=== PATIENT | male | born 1945 | race Caucasian/White ===

== ENCOUNTER 2023-08-14 13:42 | Emergency (ER) | payer MEDICARE, SELFPAY ==
[2023-08-14 13:48] VITALS: BP 120/74; PULSE 55; TEMP 36.5; O2SAT 97; BMI 29.1
--- NOTE | 2023-08-14 14:12 | ECG_ITS ---
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
--- NOTE | 2023-08-14 14:13 | ED.GENADUL1 ---
HPI HPI - General Adult General Chief complaint: Altered Mental Status Stated complaint: GENERAL WEAKNESS Time Seen by Provider: 08/14/23 13:59 Source: patient Mode of arrival: ambulance Limitations: no limitations History of Present Illness HPI narrative: Patient is a 77-year-old male who was brought to the [place] from [facility] after a lengthy stay secondary to a subdural hematoma with craniotomy. He was brought to this emergency department today by EMS for an alleged unresponsive episode after he was done eating lunch. Patient states this is not true. senior care reports that the patient was unresponsive and they were concerned he was having a seizure so they called 911. Patient states he did not sleep well last night and believes that he dozed off and woke up to nurses and EMS telling him he had to come to the hospital. He is alert and oriented to person, place, time. He has no focal medical complaints in the ER and wishes to be discharged. He would like to leave AGAINST MEDICAL ADVICE and does not want any testing done. Related Data Home Medications ?Medication ?Instructions ?Recorded ?Confirmed acetaminophen 325 mg tablet 325 mg PO Q6H PRN pain 08/14/23 08/14/23 albuterol sulfate 2.5 mg/3 mL 1.25 mg inhalation Q4H 08/14/23 08/14/23 (0.083 %) solution for nebulization amlodipine 10 mg tablet 10 mg PO DAILY 08/14/23 08/14/23 gabapentin 300 mg capsule 300 mg PO DAILY 08/14/23 08/14/23 Allergies Allergy/AdvReac Type Severity Reaction Status Date / Time meloxicam Allergy Unknown Verified 08/14/23 13:53 pravastatin Allergy Unknown Verified 08/14/23 13:53 Opioid HPI Opioid Management Most Recent Opioid Data: No Data to Display Review of Systems ROS Constitutional Denies: fever or chills Ears, nose, mouth, and throat Denies: throat pain or nasal congestion Respiratory Denies: shortness of breath Gastrointestinal Denies: nausea or vomiting Neurological Denies: headache Hematologic/Lymphatic Denies: easy bruising or easy bleeding Exam Narrative Exam Narrative: Gen.: Awake, alert, in no distress Head: Normocephalic, Large stapled incision to the right temporal scalp with smaller sutured incision. No swelling, bleeding or drainage ENT: Moist mucous membranes Respiratory: No respiratory distress, lungs clear bilaterally Cardio: Regular rate and rhythm Extremities: Moves extremities equally Psych: Normal mood and affect Neuro: No focal neuro deficit; Alert and oriented to person, place, time. No slurred speech or focal neurodeficits noted Skin: Warm, dry, intact Constitutional Vital Signs, click to edit/add: Last Vital Signs Temp 97.7 F 08/14/23 13:48 Pulse 55 L 08/14/23 13:48 Resp 16 08/14/23 13:48 BP 120/74 08/14/23 13:48 Pulse Ox 97 08/14/23 13:48 O2 Del Method Room Air 08/14/23 13:48 Course Vital Signs Vital signs: Vital Signs Temperature 97.7 F 08/14/23 13:48 Pulse Rate 55 L 08/14/23 13:48 Respiratory Rate 16 08/14/23 13:48 Blood Pressure 120/74 08/14/23 13:48 Pulse Oximetry 97 08/14/23 13:48 Oxygen Delivery Method Room Air 08/14/23 13:48 Temperature 97.7 F 08/14/23 13:48 Pulse Rate 55 L 08/14/23 13:48 Respiratory Rate 16 08/14/23 13:48 Blood Pressure 120/74 08/14/23 13:48 Pulse Oximetry 97 08/14/23 13:48 Oxygen Delivery Method Room Air 08/14/23 13:48 Medical Decision Making MDM Narrative Medical decision making narrative: I explained to the patient the concerns from his residence and recommended that he have an evaluation with head CT, chest x-ray, labs and urine. Patient does not want any of this evaluation. He states he just had a CT last week, he has no focal medical complaints and does not agree with nursing statement that he was unresponsive. He understands the risks of and disability by leaving AGAINST MEDICAL ADVICE. Patient was made aware that we cannot force any testing on him, but to rule out any significant illness he should be evaluated. He understands this but would like to sign out AGAINST MEDICAL ADVICE. He understands he can return to the ER at any time SUPERVISED APC VISIT, PHYSICIAN ATTESTATION: Based on the medical record the care appears appropriate. ? Medical Records Medical records reviewed: Yes I reviewed the patient's medical records ECG Data Attestation: I personally reviewed and interpreted this ECG as follows: (Normal sinus rhythm at a rate of 56 with sinus arrhythmia, no acute ST elevation or ectopy. EKG reviewed by attending physician) Discharge Plan Discharge Stand Alone Forms: Portal Instructions Chief Complaint: Altered Mental Status Clinical Impression: Adult general medical exam Patient Disposition: Left Against Medical Advice Time of Disposition Decision: 14:10 Condition: Good Prescriptions / Home Meds: No Action acetaminophen 325 mg tablet 325 mg PO Q6H PRN (Reason: pain) albuterol sulfate 2.5 mg /3 mL (0.083 %) solution for nebulization 1.25 mg inhalation Q4H amlodipine 10 mg tablet 10 mg PO DAILY gabapentin 300 mg capsule 300 mg PO DAILY Print Language: Hungarian Additional Instructions: If you develop any symptoms or would like to be reevaluated please come back to the emergency department for further evaluation and treatment
--- NOTE | 2023-08-14 14:50 | PC.NURSE ---
staff from [facility] states pt went unresponsive. pt alert and oriented upon arrival to ER. pt states feels fine.
== END 2023-08-14 14:35 | disposition left against medical advice (07) ==
PROVIDERS: Emergency Provider Emergency Medicine Emergency Medical Services
DX: Z00.00 Encounter for general adult medical examination without abnormal findings (principal); Z53.29 Procedure and treatment not carried out because of patient's decision for other reasons
CPT/HCPCS: 93005; 99283

== ENCOUNTER 2023-08-18 19:30 | Observation (INO) | payer MEDICARE, OTHER, SELFPAY ==
[2023-08-18] VITALS (24 sets, daily range): BP systolic 107; BP diastolic 61; PULSE 50–89; TEMP 36.9; O2SAT 95–97; BMI 14.5
--- NOTE | 2023-08-18 19:32 | ED_ITS ---
HPI - Altered Mental Status General Chief Complaint: Altered Mental Status Stated Complaint: ALTERED MENTAL STATUS Time Seen by Provider: 08/18/23 19:32 History of Present Illness HPI narrative: This 77-year-old male who is status post brain surgery after having a subdural hematoma and [facility] was transferred for evaluation of altered mental status and pinpoint pupils. The patient states he is not confused, he knows where he is. There was some concern that the family may be bringing in pain medication for him from home. He denies that this is the case. He states they give him his medication at the retirement in the morning and at night. He states they got mad at him tonight because he wanted a cup of coffee and to go to the bathroom. He has no focal neurologic deficits. He had has not been febrile. He denies any chest pain or shortness of breath. He has lexi on the right side of his scalp where his surgery was performed. He was also seen in this emergency department recently for questionable seizure but refused a workup at that time and was sent back. He states today that this is the second time he has been brought here clearly indicating that he remembers being brought here recently for the questionable seizure. He keeps repeating himself and asking if he is in trouble. According to his MAR, he is on Methadone once daily, OARRS is however negative. The patient's daughter and christy? came to the emergency department shortly after his arrival and gave additional history. They state that his mental status today is not typical of his typical mental status. 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 They have not seen a physician since he has been at the [place]. His MAR states that he is getting 30 mg of methadone in the morning. I did review the MAR with his daughter and christy?. I also reviewed some of his labs including a urinary tract infection. Related Data Home Medications ?Medication ?Instructions ?Recorded ?Confirmed acetaminophen 325 mg tablet 325 mg PO Q6H PRN pain 08/14/23 08/14/23 albuterol sulfate 2.5 mg/3 mL 1.25 mg inhalation Q4H 08/14/23 08/14/23 (0.083 %) solution for nebulization amlodipine 10 mg tablet 10 mg PO DAILY 08/14/23 08/14/23 gabapentin 300 mg capsule 300 mg PO DAILY 08/14/23 08/14/23 Allergies Allergy/AdvReac Type Severity Reaction Status Date / Time meloxicam Allergy Unknown Verified 08/14/23 13:53 pravastatin Allergy Unknown Verified 08/14/23 13:53 Review of Systems ROS Status of ROS 10 or more systems reviewed and unremark able except as noted in history and below Exam Narrative Exam Narrative: Vital signs and Nursing Notes reviewed: He is afebrile with a normal pulse, normal blood pressure, he is not hypoxic with pulse ox of 97% on room air General: Awake, alert, oriented to person and place, remembers being in this emergency department recently. GCS 15, anxious, repeats the same question over and over, no respiratory distress, moves easily about the stretcher. HEENT: Normocephalic, healing laceration to the right parietal aspect of the scalp and an additional area with 1 suture in it on the vertex of the scalp adjacent to the healing laceration, no swelling, tenderness or sign of infection Neck: Supple, no meningeal signs, no anterior or posterior cervical lymphadenopathy Chest: Lungs are clear to auscultation with good air entry, there is no wheezing rhonchi or rales appreciated no accessory muscle use, patient is speaking in complete sentences-no chest wall tenderness to palpation CVS: Regular rate and rhythm S1-S2, no murmurs rubs or gallops, pulses are brisk and equal bilaterally ABD: Soft, nondistended, nontender, no rebound guarding or rigidity, bowel sounds are normal, no pulsatile masses appreciated Extremities: Moving all extremities, no lower extremity tenderness or swelling noted, negative Homans' sign, pulses are brisk and equal bilaterally Skin: Normal in appearance without rash,pallor, petechiae or purpura Neuro: No focal deficits, emergency communications dispatcher strength is intact, speech is clear, no facial droop, patient easily pulls himself to a sitting position from a lying position indicating he has no truncal weakness, memory is mostly intact but the patient does repeat questions over and over and is anxious Constitutional Vital Signs, click to edit/add: Last Vital Signs Temp 98.5 F 08/18/23 19:32 Pulse 50 L 08/18/23 23:40 Resp 11 L 08/18/23 23:40 BP 107/61 08/18/23 19:32 Pulse Ox 95 08/18/23 22:30 O2 Del Method Room Air 08/18/23 19:32 Course Vital Signs Vital signs: Vital Signs Temperature 98.5 F 08/18/23 19:32 Pulse Rate 67 08/18/23 19:32 Respiratory Rate 18 08/18/23 19:32 Blood Pressure 107/61 08/18/23 19:32 Pulse Oximetry 97 08/18/23 19:32 Oxygen Delivery Method Room Air 08/18/23 19:32 Temperature 98.5 F 08/18/23 19:32 Pulse Rate 50 L 08/18/23 23:40 Respiratory Rate 11 L 08/18/23 23:40 Blood Pressure 107/61 08/18/23 19:32 Pulse Oximetry 95 08/18/23 22:30 Oxygen Delivery Method Room Air 08/18/23 19:32 MDM - Altered Mental Status MDM Narrative Medical decision making narrative: This 77-year-old male who recently had a craniotomy due to a subdural hematoma that he sustained after falling out of a truck at home in July and has been at [facility] and then transferred to local [facility] care facility for rehab is transferred to the emergency department from the extended care facility for evaluation of altered mental status. 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 The patient's family is upset stating that they do not feel that he is being medicated appropriately as he was formally on 3 times daily dosing of pain medication. I did review the patient's MAR and he is getting this methadone. Upon arrival he was alert and oriented but had episodes of tearfulness and anxiety. There is no gross focal deficits. EKG done upon arrival was a sinus rhythm that was limited by artifact but does not show any acute findings. An IV was placed and routine labs were ordered and are reviewed. He has a normal white count. Hemoglobin is low but stable at 8.9. BUN and creatinine are mildly elevated. He has a normal troponin. Lactic acid was normal. CT scan of the brain which is included in the body of this report does not show any new or acute findings but does show chronic and stable issues. Chest x-ray was reviewed by radiology and does not show any acute pneumonia. He does have a urinary tract infection with greater than 100 white blood cells per high-power field. He was medicated with IV fluids and a dose of Ativan due to his anxiety and inability to stay still for t he CT scan. He was also given IV Rocephin for the UTI. He will be admitted to the hospitalist service for further evaluation and treatment. He remains hemodynamically stable in the emergency department. Medical Records Medical records narrative: The [address] [address] [address] Scan Report Signed Patient: ADELINA ELAM MR#: [id number] : 1945 Acct:[id number] Age/Sex: 77 / M ADM Date: 08/18/23 Loc: ER Attending Dr: Ordering Physician: Yenifer Mosher Date of Service: 08/18/23 Procedure(s): CT head/brain wo con Accession Number(s): [id number] cc: GERONIMO SAUCEDO D.O.~ The [address] [address] Patient Name: ADELINA ELAM MRN: [id number] date: 1945 Sex: M Assigned Patient Location: ER Current Patient Location: ER Accession/Order Number: [id number] Exam Date: 08/18/2023 21:00 Report Date: 08/18/2023 22:22 At the request of: YENIFER MOSHER Procedure: CT head/brain wo con INDICATION: 77 years old; Male. Change in mental status. Postop brain surgery. TECHNIQUE: CT Head (ax/cor/sag reformats). Ionizing radiation dose reduced via iterative reconstruction/FBP blend and body size kV/mA adjustment. Comparison: Head CT dated 08/02/2023. Head CT dated 07/19/2023. FINDINGS: POSTOPERATIVE CHANGES: Prior right-sided craniotomy. There is evacuation of a right-sided subdural hematoma. Residual primarily hypodense fluid remains measuring 9.73 mm in thickness, improved as compared to the prior study. A small amount of intracranial pneumocephalus is present. BRAIN PARENCHYMA: No acute intracranial hemorrhage is present. There is improvement in the appearance of mass effect as compared to the prior study. No midline shift is appreciated. Third ventricle is in the midline. Patchy and confluent low-density seen in the white matter without mass effect. Although nonspecific, this finding would be consistent with small vessel ischemic change. VENTRICLES/EXTRA-AXIAL SPACES: Enlarged, consistent with atrophy. There is persistent mass effect with compression of cortical sulci in the right associated with residual subdural fluid. However, there is no midline shift present. Compression of the frontal horn of the right lateral ventricle is seen which is improved as compared to the prior study. SINUSES/MASTOIDS: Small fluid level in the visualized portion maxillary sinus on the left. The maxillary sinuses are not completely included in the examination. Mastoid air cells are clear. MSK: Right-sided craniotomy. Extracranial soft tissue swelling with surgical clips. The anterior margin of the craniotomy includes the previous olivia hole. OTHER: No hyperdense intraluminal thrombus is present. Vascular calcifications are seen in the anterior and posterior circulation. CT/CT head/brain wo con IMPRESSION: 1. Postop right-sided craniotomy. Evacuation of right-sided subdural hematoma. There is residual hypodense fluid within the subdural space, decreased in volume as compared to the prior study. No new hyperdense component is present. A small amount of intracranial, postoperative pneumocephalus is noted. 2. Improvement in previously noted mass effect. 3. Nonspecific white matter changes. 4. Atrophy. 5. Vascular calcification in the anterior and posterior circulation. 6. Small fluid level visualized portion left maxillary sinus. Electronically authenticated by: JOANN JACOBS Date: 08/18/2023 22:22 The [place] [id number] XRay Report Signed Patient: CONSUELO ROBERTS MR#: [id number] : 03/29/1948 Acct:[id number] Age/Sex: 75 / F ADM Date: 08/18/23 Loc: ER Attending Dr: Ordering Physician: Yenifer Mosher Date of Service: 08/18/23 Procedure(s): XR chest 1V Accession Number(s): [id number] cc: Yenifer Mosher; MULU RESENDIZ M.D.~ The [place] [id number] Patient Name: CONSUELO ROBERTS MRN: [id number] date: 03/29/1948 Sex: F Assigned Patient Location: ER Current Patient Location: ED.MAIN Accession/Order Number: [id number] Exam Date: 08/18/2023 22:25 Report Date: 08/18/2023 23:59 At the request of: YENIFER MOSHER Procedure: XR chest 1V EXAM: XR chest 1V HISTORY: SOB COMPARISON: Chest x-ray, 07/24/2023. TECHNIQUE: AP upright portable chest. FINDINGS: The heart is mildly moderately enlarged. The mediastinal contour is normal. Mild interstitial prominence in the lower lungs could reflect very early edema. The lungs show mild hyperinflation but appear otherwise clear. No pleural effusion or pneumothorax is seen. XR/XR chest 1V IMPRESSION: Cardiomegaly and pulmonary hyperinflation, with nonspecific mild interstitial prominence in the lower lungs which could reflect early dependent edema. The lungs appear otherwise clear. Electronically authenticated by: ARPAN MANZO Date: 08/18/2023 23:59 Lab Data Labs: Lab Results 08/18/23 08/18/23 Range/Units 20:00 20:17 WBC 6.7 (4.0-11.0) 10^3/uL RBC 3.09 L (4.70-6.10) 10^6/uL Hgb 8.9 L (14.0-18.0) g/dL Hct 28.5 L (42.0-54.0) % MCV 92.2 (80.0-94.0) fL MCH 28.8 (25.9-34.0) pg MCHC 31.2 (29.9-35.2) g/dL RDW 15.2 H (11.0-15.0) % Plt Count 290 (150-450) 10^3/uL MPV 8.7 L (9.5-13.5) fL Neut % (Auto) 81.1 H (43.0-75.0) % Lymph % (Auto) 9.8 L (20.5-60.0) % [place] % (Auto) 7.0 (1.7-12.0) % Eos % (Auto) 0.7 L (0.9-7.0) % Baso % (Auto) 0.4 (0.2-2.0) % Neut # (Auto) 5.4 (1.4-6.5) 10^3/uL Lymph # (Auto) 0.7 L (1.2-3.8) 10^3/uL [place] # (Auto) 0.5 (0.3-0.8) 10^3/uL Eos # (Auto) 0.1 (0.0-0.7) 10^3/uL Baso # (Auto) 0.0 (0.0-0.1) 10^3/uL Abs Immat Gran (auto) 0.07 H (0.00-0.03) 10^3/uL Imm/Tot Granulo (auto) 1.0 H (0.0-0.5) % PT 10.3 (9.0-11.6) sec INR 0.97 Sodium 136 (136-145) mmol/L Potassium 5.2 H (3.5-5.1) mmol/L Chloride 103 (98-107) mmol/L Carbon Dioxide 22.7 (21.0-32.0) mmol/L Anion Gap 15.5 BUN 37.0 H (7.0-18.0) mg/dL Creatinine 1.36 H (0.70-1.30) mg/dL Est GFR ( Amer) >60 (>=60) Est GFR (Non-Af Amer) 51 L (>=60) BUN/Creatinine Ratio 27.2 Glucose 111 H (74-106) mg/dL Lactate 1.3 (0.4-2.0) mmol/L Calcium 9.5 (8.5-10.1) mg/dL Total Bilirubin 0.3 (0.2-1.0) mg/dL AST 16 (15-37) U/L ALT 33 (16-63) U/L Alkaline Phosphatase 95 (46-116) U/L Troponin I High Sens 4.3 (4.0-76.1) pg/mL Total Protein 7.6 (6.4-8.2) g/dL Albumin 3.6 (3.4-5.0) g/dL Globulin 4.0 g/dL Albumin/Globulin Ratio 0.9 Urine Color Red A (YELLOW) Urine Clarity Clear (CLEAR) Urine pH 5.5 (5.0-9.0) Ur Specific [place] 1.020 (1.005-1.025) Urine Protein Negative (NEG/TRACE) mg/dL Urine Glucose (UA) Negative (NEGATIVE) mg/dL Urine Ketones Negative (NEGATIVE) mg/dL Urine Occult Blood Trace-i (NEGATIVE) Urine Nitrite Negative (NEGATIVE) Urine Bilirubin Negative (NEGATIVE) Urine Urobilinogen 0.2 (0.2-1.0) EU/dL Ur Leukocyte Esterase Moderate A (NEGATIVE) Urine RBC 0-2 (0-2) #/HPF Urine WBC >100 A (NONE SEEN) #/HPF Ur Squamous Epith Cells Many A (NONE/RARE) #/LPF Urine Crystals None seen (None Seen) #/HPF Amorphous Sediment Many Urine Bacteria Small A (NONE SEEN) #/HPF Urine Casts None seen (NONE SEEN) #/LPF Urine Mucus Moderate A (NONE SEEN) Ur Culture Indicated? Yes Urine Opiates Screen Negative (NEGATIVE) Ur Buprenorphine Scrn Negative (NEGATIVE) Ur Oxycodone Screen Negative (NEGATIVE) Urine Methadone Screen Positive A (NEGATIVE) Ur Barbiturates Screen Negative (NEGATIVE) U Tricyclic Antidepress Negative (NEGATIVE) Ur Phencyclidine Scrn Negative (NEGATIVE) Ur Amphetamines Screen Negative (NEGATIVE) U Methamphetamines Scrn Negative (NEGATIVE) U Benzodiazepines Scrn Negative (NEGATIVE) Urine Cocaine Screen Negative (NEGATIVE) U Cannabinoids Screen Negative (NEGATIVE) ECG Data Attestation: I personally reviewed and interpreted this ECG as follows: (Interpretation is limited by patient movement, sinus rhythm at 75 bpm, no acute ST segment elevation or T wave inversion, normal axis) Discharge Plan Discharge Chief Complaint: Altered Mental Status Clinical Impression: Delirium due to general medical condition, Acute UTI Patient Disposition: Admitted as Observation Time of Disposition Decision: 00:28 Condition: Fair Prescriptions / Home Meds: No Action acetaminophen 325 mg tablet 325 mg PO Q6H PRN (Reason: pain) albuterol sulfate 2.5 mg /3 mL (0.083 %) solution for nebulization 1.25 mg inhalation Q4H amlodipine 10 mg tablet 10 mg PO DAILY gabapentin 300 mg capsule 300 mg PO DAILY Print Language: Monegasque Referrals: Physician,Non-Staff, [Physician] - 1 week
--- NOTE | 2023-08-18 19:45 | CT_ITS ---
The [address] [address] Patient Name: ADELINA ELAM MRN: [id number] date: 1945 Sex: M Assigned Patient Location: ER Current Patient Location: Accession/Order Number: [id number] Exam Date: 08/18/2023 21:00 Report Date: 08/18/2023 22:22 At the request of: AMY MARKER Procedure: CT head/brain wo con INDICATION: 77 years old; Male. Change in mental status. Postop brain surgery. TECHNIQUE: CT Head (ax/cor/sag reformats). Ionizing radiation dose reduced via iterative reconstruction/FBP blend and body size kV/mA adjustment. Comparison: Head CT dated 08/02/2023. Head CT dated 07/19/2023. FINDINGS: POSTOPERATIVE CHANGES: Prior right-sided craniotomy. There is evacuation of a right-sided subdural hematoma. Residual primarily hypodense fluid remains measuring 9.73 mm in thickness, improved as compared to the prior study. A small amount of intracranial pneumocephalus is present. BRAIN PARENCHYMA: No acute intracranial hemorrhage is present. There is improvement in the appearance of mass effect as compared to the prior study. No midline shift is appreciated. Third ventricle is in the midline. Patchy and confluent low-density seen in the white matter without mass effect. Although nonspecific, this finding would be consistent with small vessel ischemic change. VENTRICLES/EXTRA-AXIAL SPACES: Enlarged, consistent with atrophy. There is persistent mass effect with compression of cortical sulci in the right associated with residual subdural fluid. However, there is no midline shift present. Compression of the frontal horn of the right lateral ventricle is seen which is improved as compared to the prior study. SINUSES/MASTOIDS: Small fluid level in the visualized portion maxillary sinus on the left. The maxillary sinuses are not completely included in the examination. Mastoid air cells are clear. MSK: Right-sided craniotomy. Extracranial soft tissue swelling with surgical clips. The anterior margin of the craniotomy includes the previous olivia hole. OTHER: No hyperdense intraluminal thrombus is present. Vascular calcifications are seen in the anterior and posterior circulation. CT/CT head/brain wo con IMPRESSION: 1. Postop right-sided craniotomy. Evacuation of right-sided subdural hematoma. There is residual hypodense fluid within the subdural space, decreased in volume as compared to the prior study. No new hyperdense component is present. A small amount of intracranial, postoperative pneumocephalus is noted. 2. Improvement in previously noted mass effect. 3. Nonspecific white matter changes. 4. Atrophy. 5. Vascular calcification in the anterior and posterior circulation. 6. Small fluid level visualized portion left maxillary sinus. Electronically authenticated by: JOANN JACOBS Date: 08/18/2023 22:22
--- NOTE | 2023-08-18 19:45 | ECG_ITS ---
The [facility] Test Date: 2023-08-18 Pat Name: ADELINA ELAM Department: Room: - Gender: Male [employer] Fe[employer]: : 1945 Requested By: GERONIMO SAUCEDO Order Number: [id number] Reading MD: TOM ENGEL Measurements Intervals [place] Rate: 75 P: 67 VA: 184 QRS: 30 QRSD: 88 T: 70 QT: 374 QTc: 402 Interpretive Statements 1100 Sinus rhythm 0102 ARTIFACT PRESENT 9110 normal ECG Electronically Signed On 08-18-2023 22:19:10 EDT by TOM ENGEL
--- NOTE | 2023-08-18 19:45 | XR_ITS ---
The [address] [address] Patient Name: ADELINA ELAM MRN: [id number] date: 1945 Sex: M Assigned Patient Location: ER Current Patient Location: ER Accession/Order Number: [id number] Exam Date: 08/18/2023 21:00 Report Date: 08/18/2023 23:10 At the request of: AMY MARKER Procedure: XR chest 1V EXAM: XR chest 1V HISTORY: AMS COMPARISON: None. TECHNIQUE: One view of the chest was obtained. FINDINGS: A right chest port a catheter is in place. The cardiac silhouette is normal in size. Aortic atherosclerotic disease is seen. There is no significant pneumothorax or pleural effusion. There are bibasilar opacities. Extensive osseous metastatic disease is seen. XR/XR chest 1V IMPRESSION: 1. Bibasilar opacities that could represent atelectasis, aspiration changes, and/or pneumonia. 2. Extensive osseous metastatic disease. Electronically authenticated by: Polo STODDARD Date: 08/18/2023 23:10
--- NOTE | 2023-08-18 20:27 | PC.NURSE ---
Pt presents to ER via EMS for altered mental status and pinpoint pupils Report was called from the residential where pt resides Per nurse at the [facility] pt came to them last Friday after being released from the [facility] for treatment of a large subdural bleed Pt has 27 lexi in the right side of his head Per report pt also had olivia holes during his course of treatment - unsure when initial injury occurred Per report from residential there is concern for pt's family giving him pain medication that is not prescribed to him, nurse stated the pt is more confused and agitated than usual and has pinpoint unreactive pupils On arrival, pt's pupils are indeed pinpoint and non reactive Pt has a GCS of 15 but is frequently tearful and repeats himself Pt is unable to sit still in the bed and is repeatedly slouching and scooting down to the end of the bed Pt moves easily, he sat on the side of the bed to collect a urine sample with the assistance of this nurse Pt keeps crying stating his family is going to be mad at him and he is fearful that he is going to long term This nurse keeps reassuring him this is not true and noone is mad at him Maricruz LERMA is spending time with pt as I believe he needs to be monitored
[2023-08-18 20:37] LABS: Basophils Percent Auto 0.4 % (0.2-2.0); Eosinophils Absolute Auto 0.1 10^3/uL (0.0-0.7); Eosinophils Percent Auto 0.7 % (0.9-7.0); Hematocrit 28.5 % (42.0-54.0); Hemoglobin 8.9 g/dL (14.0-18.0); Immature Granulocytes Abs Auto 0.07 10^3/uL (0.00-0.03); Lymphocytes Absolute Auto 0.7 10^3/uL (1.2-3.8); Lymphocytes Percent Auto 9.8 % (20.5-60.0); Mean Corpuscular HGB Conc 31.2 g/dL (29.9-35.2); Mean Corpuscular Hemoglobin 28.8 pg (25.9-34.0); Mean Corpuscular Volume 92.2 fL (80.0-94.0); Mean Platelet Volume 8.7 fL (9.5-13.5); Monocytes Absolute Auto 0.5 10^3/uL (0.3-0.8); Neutrophils Absolute Auto 5.4 10^3/uL (1.4-6.5); Neutrophils Percent Auto 81.1 % (43.0-75.0); Platelet Count 290 10^3/uL (150-450); Red Blood Count 3.09 10^6/uL (4.70-6.10); Red Cell Distribution Width 15.2 % (11.0-15.0); White Blood Count 6.7 10^3/uL (4.0-11.0)
[2023-08-18 20:42] LABS: Bilirubin Urine NEGATIVE (NEGATIVE); Blood Urine TRACE-I (NEGATIVE); Clarity Urine CLEAR (CLEAR); Color Urine RED (YELLOW); Glucose Urine UA NEGATIVE (NEGATIVE); Ketones Urine NEGATIVE (NEGATIVE); Leukocyte Esterase Urine MODERATE (NEGATIVE); Nitrite Urine NEGATIVE (NEGATIVE); Protein Urine NEGATIVE (NEG/TRACE); Urobilinogen Urine 0.2 EU/dL (0.2-1.0); pH Urine 5.5 (5.0-9.0)
[2023-08-18 20:50] LABS: RBC Urine 0-2 #/HPF (0-2); WBC Urine >100 #/HPF (NONE SEEN)
[2023-08-18 20:51] LABS: Amorphous Sediment Urine MANY; Bacteria Urine SMALL #/HPF (NONE SEEN); Cast Seen? NONE SEEN #/LPF (NONE SEEN); Crystals Seen? None Seen #/HPF (None Seen); Mucus Urine MODERATE (NONE SEEN); Squamous Epithelial Cell Urine MANY #/LPF (NONE/RARE); Urine Culture Indicated YES
[2023-08-18 20:52] LABS: Amphetamine Screen Urine NEGATIVE (NEGATIVE); Barbiturates Screen Urine NEGATIVE (NEGATIVE); Benzodiazepines Screen Urine NEGATIVE (NEGATIVE); Buprenorphine Screen Urine NEGATIVE (NEGATIVE); Cannabinoid Screen Urine NEGATIVE (NEGATIVE); Cocaine Screen Urine NEGATIVE (NEGATIVE); Methadone Screen Urine POSITIVE (NEGATIVE); Methamphetamines Screen Urine NEGATIVE (NEGATIVE); Opiate Screen Urine NEGATIVE (NEGATIVE); Oxycodone Screen Urine NEGATIVE (NEGATIVE); Phencyclidine Screen Urine NEGATIVE (NEGATIVE); Tricyclic Antidepressant Urine NEGATIVE (NEGATIVE)
[2023-08-18 20:52] LABS: INR 0.97; Prothrombin Time 10.3 sec (9.0-11.6)
[2023-08-18 20:56] LABS: Lactate/Lactic Acid 1.3 mmol/L (0.4-2.0)
[2023-08-18 21:03] LABS: Alanine Aminotransferase 33 U/L (16-63); Albumin Globulin Ratio 0.9; Albumin Level 3.6 g/dL (3.4-5.0); Alkaline Phosphatase 95 U/L (46-116); Anion Gap 15.5; Aspartate Amino Transferase 16 U/L (15-37); BUN Creatinine Ratio 27.2; Bilirubin Total 0.3 mg/dL (0.2-1.0); Calcium 9.5 mg/dL (8.5-10.1); Carbon Dioxide 22.7 mmol/L (21.0-32.0); Chloride 103 mmol/L (98-107); Estimated GFR (African America >60 (>=60); Estimated GFR (Non-African Ame 51 (>=60); Glucose 111 mg/dL (74-106); Potassium 5.2 mmol/L (3.5-5.1); Sodium 136 mmol/L (136-145); Total Protein 7.6 g/dL (6.4-8.2); Troponin I High Sensitivity 4.3 pg/mL (4.0-76.1)
--- NOTE | 2023-08-18 21:06 | PC.NURSE ---
This nurse remains at bedside throughout to assist in keeping pt calm Pt's fiance and daughter are now both at bedside Pt's family expresses concern for what medications pt is receiving at the [facility] This nurse and Dr. Mosher go over meds with the family and explain what the pt is receiving Pt keeps having episodes where his head yimi over and his mouth is open, eyes are open, but he is not responsive until a strong stimuli is used When pt comes back alert he is oriented, unsure if this is new seizure like activity or if the pt is sleeping with this eyes open, the family states this is new for him and concerning When pt comes alert he states he is afraid he is going to and proceeds to cry and cry Pt having a difficult time remaining still and calm This nurse requested Ativan but when I went to administer it the pt was more calm and cooperative at the time Holding Ativan at this time chest xray performed in the room Pt now headed down to [place] with his fiance accompanying
[2023-08-18] MEDS: LORAZEPAM 2 MG/ML VIAL 1 MG IV (21:20)
[2023-08-18] MEDS: CEFTRIAXONE 1,000 MG in 0.9 % SODIUM CHLORIDE 50 ML 100 MG IV (21:51)
[2023-08-19] MEDS: LORAZEPAM 2 MG/ML VIAL 1 MG IV (00:31)
[2023-08-19 02:34] VITALS: BP 139/65; PULSE 79; TEMP 36.4; O2SAT 94; BMI 24.5
[2023-08-19] MEDS: 0.9 % SODIUM CHLORIDE 1,000 ML 75 ML IV (02:59)
[2023-08-19 04:52] LABS: Basophils Percent Auto 0.4 % (0.2-2.0); Eosinophils Absolute Auto 0.2 10^3/uL (0.0-0.7); Eosinophils Percent Auto 2.8 % (0.9-7.0); Hematocrit 27.9 % (42.0-54.0); Hemoglobin 8.6 g/dL (14.0-18.0); Immature Granulocytes Abs Auto 0.05 10^3/uL (0.00-0.03); Immature Granulocytes Pct Auto 0.9 % (0.0-0.5); Lymphocytes Percent Auto 19.5 % (20.5-60.0); Mean Corpuscular HGB Conc 30.8 g/dL (29.9-35.2); Mean Corpuscular Hemoglobin 28.6 pg (25.9-34.0); Mean Corpuscular Volume 92.7 fL (80.0-94.0); Monocytes Absolute Auto 0.6 10^3/uL (0.3-0.8); Monocytes Percent Auto 10.7 % (1.7-12.0); Neutrophils Absolute Auto 3.5 10^3/uL (1.4-6.5); Neutrophils Percent Auto 65.7 % (43.0-75.0); Platelet Count 293 10^3/uL (150-450); Red Blood Count 3.01 10^6/uL (4.70-6.10); Red Cell Distribution Width 15.1 % (11.0-15.0); White Blood Count 5.3 10^3/uL (4.0-11.0)
[2023-08-19 05:21] LABS: Alanine Aminotransferase 30 U/L (16-63); Albumin Globulin Ratio 0.9; Albumin Level 3.4 g/dL (3.4-5.0); Alkaline Phosphatase 91 U/L (46-116); Anion Gap 15.6; Aspartate Amino Transferase 15 U/L (15-37); Bilirubin Total 0.2 mg/dL (0.2-1.0); Calcium 9.3 mg/dL (8.5-10.1); Carbon Dioxide 21.9 mmol/L (21.0-32.0); Chloride 106 mmol/L (98-107); Estimated GFR (African America >60 (>=60); Estimated GFR (Non-African Ame >60 (>=60); Globulin 3.8 g/dL; Glucose 94 mg/dL (74-106); Potassium 4.5 mmol/L (3.5-5.1); Sodium 139 mmol/L (136-145); Total Protein 7.2 g/dL (6.4-8.2)
--- NOTE | 2023-08-19 10:48 | CM.NOTE ---
Rounds made with Dr. Sanchez. Riley raised voice and yelled when Dr. Sanchez asked to move legs. Visitor that lives with patient is in room and Dr Sanchez asked her if patient was back to to his baseline behavior and she said yes. Dr. Sanchez discussed probable discharge back to [facility] today since back to baseline behaviorally and treat UTI as outpatient.
--- NOTE | 2023-08-19 10:57 | SWNOTE1 ---
SW stopped in to pt's room. Pt was sleeping at this time. SW spoke to significant other. They are pleased with care at [facility], pt has only been there since last . Plan is for him to return for more rehab. Pt is being discharged back today. SW to set up stretcher transport due to pt's agitation. SW to set up once dc orders are in. SW let [facility] know and sent over updates. Medicare Outpatient Observation Notice reviewed and discussed with patient's significant other . Pt's significant other verbalized understanding and signed the form. Original given to patient's significant other and copy placed in patient?s chart.
--- NOTE | 2023-08-19 11:52 | P.HP_ITS ---
<Statement entered by Shaikh Laura MD - 08/19/23 13:02> This documentation has been reviewed and approved. Seen and examined. Case discussed with RN, Hospital [facility] [employer]. Patient admitted for increasing confusion from local rehab. Work up revealed mild dehydration/Acute UTI. Improved with IV hydration and abx. Confused at baseline with periods of agitation/irritability. 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 Workup in the ED revealed mild dehydration (BUN 37, CR 1.36, GFR 51), mild hyperkalemia (5.2), and a positive UA. CT imaging of the brain revealed no acute intercranial process, but post craniotomy changes on the right were noted. Chest x-ray revealed bibasilar opacities that could represent atelectasis, aspiration changes, and/or pneumonia and extensive osseous metastatic disease. There was no evidence of hypoxia, cough, or fever in the ED. He was admitted in observation to the hospitalist service for UTI and acute metabolic encephalopathy. At the time of my exam the patient is resting in bed. He is confused and oriented to self only. His fianc?e arrives at the bedside and reports that he is experiencing increasing confusion and disorientation over the last several months which is worse after his subdural hematoma and craniotomy. She feels like his current behavior is his baseline mentation. As the patient's is stable and at his usual baseline, he will be discharged later today back to the SNF to continue his rehab. He will be prescribed cefdinir for a 7-day course at discharge. Opioid HPI Opioid Management Most Recent Pain and Opioid Data: 2 Last Pain Assessment 08/19/23 11:56 Last ORT Total Score 0 08/19/23 02:34 Last ORT Risk Category Low Risk 08/19/23 02:34 Ur Phencyclidine Scrn Negative (NEGATIVE) 08/18/23 20:00 Review of Systems ROS Status of ROS unobtainable due to mental status PFSH [facility] Medical History (Updated 08/19/23 @ 12:07 by Paige Sosa NP) HTN (hypertension) ?I10 - Essential (primary) hypertension (ICD-10) Port-A-Cath in place ?Z95.828 - Presence of other vascular implants and grafts (ICD-10) Brain bleed ?I61.9 - Nontraumatic intracerebral hemorrhage, unspecified (ICD-10) Confusion ?R41.0 - Disorientation, unspecified (ICD-10) Prostate cancer metastatic to bone ?C61 - Malignant neoplasm of prostate (ICD-10) ?C79.51 - Secondary malignant neoplasm of bone (ICD-10) Surgical History (Updated 08/19/23 @ 02:52 by Rosey Flynn RN) History of olivia hole surgery ?Z98.890 - Other specified postprocedural states (ICD-10) History of craniotomy ?Z98.890 - Other specified postprocedural states (ICD-10) Social History Highest level of school completed/degree received: high school graduate Do you think of yourself as: straight/heterosexual Gender Identity: male Meds Home Medications and Allergies Home Medications ?Medication ?Instructions ?Recorded ?Confirmed ?Type acetaminophen 325 mg tablet 325 mg PO Q6H PRN pain 08/14/23 08/19/23 History albuterol sulfate 2.5 mg/3 mL 1.25 mg inhalation Q4H 08/14/23 08/19/23 History (0.083 %) solution for nebulization amlodipine 10 mg tablet 10 mg PO DAILY 08/14/23 08/19/23 History gabapentin 300 mg capsule 300 mg PO DAILY 08/14/23 08/19/23 History cefdinir 300 mg capsule 300 mg PO BID 7 days #14 caps 08/19/23 Rx heparin (porcine) 5,000 unit/mL (1 5,000 unit subcut Q12H 08/19/23 08/19/23 History mL) injection cartridge lacosamide 150 mg tablet 150 mg PO BID 08/19/23 08/19/23 History levetiracetam 750 mg tablet 750 mg PO BID 08/19/23 08/19/23 History (Kechrista) losartan 100 mg tablet 100 mg PO DAILY 08/19/23 08/19/23 History melatonin 3 mg capsule 3 mg PO DAILY 08/19/23 08/19/23 History methadone 10 mg tablet 30 mg PO ONCE 08/19/23 08/19/23 History metoprolol succinate 50 mg 50 mg PO DAILY 08/19/23 08/19/23 History tablet,extended release 24 hr polyethylene glycol 3350 17 17 g PO DAILY 08/19/23 08/19/23 History gram/dose oral powder (ClearLax) potassium chloride 20 mEq 20 meq PO DAILY 08/19/23 08/19/23 History tablet,extended release prednisone 10 mg tablet 10 mg PO DAILY 08/19/23 08/19/23 History senna-docusate sodium tablet 1 tab PO Q12H 08/19/23 08/19/23 History tamsulosin 0.4 mg capsule 0.4 mg PO DAILY 08/19/23 08/19/23 History trazodone 50 mg tablet 25 mg PO BID 08/19/23 08/19/23 History Allergies Allergy/AdvReac Type Severity Reaction Status Date / Time meloxicam Allergy Unknown Verified 08/14/23 13:53 pravastatin Allergy Unknown Verified 08/14/23 13:53 Exam Constitutional Vital Signs, click to edit/add: Last Vital Signs Temp 97.6 F 08/19/23 02:34 Pulse 79 08/19/23 02:34 Resp 20 08/19/23 02:34 BP 139/65 08/19/23 02:34 Pulse Ox 94 L 08/19/23 02:34 O2 Del Method Room Air 08/19/23 02:34 Common normals: no apparent distress, alert and well nourished General appearance: cooperative Orientation/consciousness: Yes awake, Yes oriented to person and Yes confused; not oriented to place and not oriented to time [facility] Common normals: normocephalic, hearing grossly normal bilaterally, external nose normal and moist oral mucous membranes Eye Common normals: PERRL, EOMs intact bilaterally, conjunctivae normal and no scleral icterus Alignment: alignment normal Eyelid: eyelids normal Neck & C-Spine Common normals: full ROM, supple and no JVD Chest Common normals: inspection of chest normal Chest: symmetrical chest wall rise Respiratory Common normals: normal respiratory effort, no retractions, no use of accessory muscles and clear to auscultation bilaterally Cardio Common normals: no JVD, regular rate, regular rhythm, S1 normal heart sound, S2 normal heart sound, no gallops, no clicks, no murmurs, no rub and peripheral pulses 2+ throughout GI Common normals: Normal to inspection, nondistended, normoactive bowel sounds pr esent, soft to palpation, no hepatosplenomegaly, no masses and no bruits Bladder/kidney exam: bladder abnormal to palpation Bladder abnormal details: tender Back & Pelvis Common normals: thoracic and lumbar spine normal to inspection Extremity Common normals: normal capillary refill and no pedal edema General: normal exam except as noted; no clubbing and no cyanosis Neuro [place] Coma Scale: GCS not evaluated Common normals: CN's II-XII intact bilaterally, moves all extremities, no focal motor deficits and no sensory deficits noted Speech: speech normal Motor exam: strength 5/5 throughout Psych Common normals: affect normal and activity/motor behavior normal Thought process: confused Memory/cognition: memory grossly impaired Results Labs Labs: Short CBC 08/18/23 08/19/23 Range/Units 20:17 04:35 WBC 6.7 5.3 (4.0-11.0) 10^3/uL Hgb 8.9 L 8.6 L (14.0-18.0) g/dL Hct 28.5 L 27.9 L (42.0-54.0) % Plt Count 290 293 (150-450) 10^3/uL BMP 08/18/23 08/19/23 20:17 04:35 Sodium 136 139 Potassium 5.2 H 4.5 Chloride 103 106 Carbon Dioxide 22.7 21.9 BUN 37.0 H 35.0 H Creatinine 1.36 H 1.13 Glucose 111 H 94 Calcium 9.5 9.3 Liver Function 08/18/23 08/19/23 Range/Units 20:17 04:35 Total Bilirubin 0.3 0.2 (0.2-1.0) mg/dL AST 16 15 (15-37) U/L ALT 33 30 (16-63) U/L Alkaline Phosphatase 95 91 (46-116) U/L Albumin 3.6 3.4 (3.4-5.0) g/dL Urine 08/18/23 Range/Units 20:00 Urine Color Red A (YELLOW) Urine Clarity Clear (CLEAR) Urine pH 5.5 (5.0-9.0) Ur Specific [place] 1.020 (1.005-1.025) Urine Protein Negative (NEG/TRACE) mg/dL Urine Glucose (UA) Negative (NEGATIVE) mg/dL Pulse Oximetry Attestation: I have reviewed the pertinent pulse oximetry results. Imaging Chest x-ray: Attestation: I have reviewed the pertinent imaging results. Radiologist's impression: IMPRESSION: 1. Bibasilar opacities that could represent atelectasis, aspiration changes, and/or pneumonia. 2. Extensive osseous metastatic disease. CT scan - head: Attestation: I have reviewed the pertinent imaging results. Radiologist's impression: IMPRESSION: 1. Postop right-sided craniotomy. Evacuation of right-sided subdural hematoma. There is residual hypodense fluid within the subdural space, decreased in volume as compared to the prior study. No new hyperdense component is present. A small amount of intracranial, postoperative pneumocephalus is noted. 2. Improvement in previously noted mass effect. 3. Nonspecific white matter changes. 4. Atrophy. 5. Vascular calcification in the anterior and posterior circulation. 6. Small fluid level visualized portion left maxillary sinus. Assessment and Plan Assessment and Plan (1) Acute UTI: Assessment and Plan: Acute * Adm observation * IVPB Rocephing * Urine C&S pending * BC x 2 pending * Low clinical concern for sepsis * Per Bob - mentation appears to be baseline * VS stable * D/C home today w/ Cefdinir x 7 days (2) Dehydration: Assessment and Plan: Acute * Mild * w/ pre-renal azotemia * Gentle IVF given overnight * Resolving on repeat labs this morning (3) Delirium due to general medical condition: Assessment and Plan: Acute on chronic * Chronic confusion 2/2 recent traumatic ICH and subsequent craniotomy, as well as chronic opiate use for metastatic cancer pain * Likely worsening by acute UTI, but mentation is reportedly baseline at time of discharge (4) Prostate cancer metastatic to bone: Assessment and Plan: Chronic * Continue home methadone for pain (5) History of craniotomy: Assessment and Plan: Chronic * Recent d/c from [facility] s/p craniotomy * [place] on suture line D&I, no evidence of infection * 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
--- NOTE | 2023-08-19 12:03 | SWNOTE1 ---
Pt is ready for discharge back to [facility]. MARCUS set up [facility] transport for 1:00. MARCUS sent over dc med rec to [facility]. SW notified pt's family, [facility], and nursing of time. Pt is returning skilled at [facility].
--- NOTE | 2023-08-19 12:25 | PC.NURSE ---
report called to Zandra MCCLAIN at [facility].
[2023-08-21 06:41] LABS: A. calcoaceticus-baumannii Cpx NOT DETECTED (NOT DETECTE); Bacteroides fragilis NOT DETECTED (NOT DETECTE); Candida albicans NOT DETECTED (NOT DETECTE); Candida auris NOT DETECTED (NOT DETECTE); Candida glabrata NOT DETECTED (NOT DETECTE); Candida krusei NOT DETECTED (NOT DETECTE); Candida parapsilosis NOT DETECTED (NOT DETECTE); Candida tropicalis NOT DETECTED (NOT DETECTE); Cryptococcus neoformans/gattii NOT DETECTED (NOT DETECTE); Enterobacter cloacae complex NOT DETECTED (NOT DETECTE); Enterobacterales NOT DETECTED (NOT DETECTE); Enterococcus faecalis NOT DETECTED (NOT DETECTE); Enterococcus faecium NOT DETECTED (NOT DETECTE); Haemophilus influenzae NOT DETECTED (NOT DETECTE); Klebsiella aerogenes NOT DETECTED (NOT DETECTE); Klebsiella pneumoniae group NOT DETECTED (NOT DETECTE); Listeria monocytogenes NOT DETECTED (NOT DETECTE); Neisseria meningitidis NOT DETECTED (NOT DETECTE); Proteus spp. NOT DETECTED (NOT DETECTE); Pseudomonas aeruginosa NOT DETECTED (NOT DETECTE); Salmonella spp. NOT DETECTED (NOT DETECTE); Serratia marcescens NOT DETECTED (NOT DETECTE); Staphylococcus epidermidis NOT DETECTED (NOT DETECTE); Staphylococcus lugdunensis NOT DETECTED (NOT DETECTE); Staphylococcus spp. NOT DETECTED (NOT DETECTE); Stenotrophomonas maltophilia NOT DETECTED (NOT DETECTE); Streptococcus agalactiae NOT DETECTED (NOT DETECTE); Streptococcus pneumoniae NOT DETECTED (NOT DETECTE); Streptococcus pyogenes NOT DETECTED (NOT DETECTE); Streptococcus spp. NOT DETECTED (NOT DETECTE)
[2023-08-21 09:53] LABS: Source Blood
== END 2023-08-19 13:19 ==
LOC: ER 08-19 00:29 → MS 08-19 11:48
PROVIDERS: Nurse Practitioner Acute Care; Admitting Provider Internal Medicine; Emergency Provider Emergency Medicine; PCP Family Medicine; Visit Provider Nurse Practitioner
DX: N39.0 Urinary tract infection, site not specified (principal); E86.0 Dehydration; F05 Delirium due to known physiological condition; C61 Malignant neoplasm of prostate; C79.51 Secondary malignant neoplasm of bone; I10 Essential (primary) hypertension; G40.909 Epilepsy, unspecified, not intractable, without status epilepticus; Z98.890 Other specified postprocedural states; Z79.899 Other long term (current) drug therapy
CPT/HCPCS: 36415; 70450; 71045; 80053; 80307; 81001; 83605; 84484; 85025; 85610; 87040; 87086; 87150; 93005; 96361; 96365; 96375; 96376; 97165; 99285; G0378; J0696; J2060